=== PATIENT | female | born 1995 | race Caucasian/White ===

== ENCOUNTER 2023-05-07 04:30 | Inpatient (IN) ==
[2023-05-07] MEDS ORDERED: OXYTOCIN 30 UNITS/500 ML BAG IV PRN ×2 (04:41→04:52)
[2023-05-07] MEDS ORDERED: LIDOCAINE 1% LOCAL 20 ML VIAL INFIL PRN (04:41)
[2023-05-07] MEDS ORDERED: LACTATED RINGER'S 1,000 ML IV PRN (04:41)
[2023-05-07] MEDS ORDERED: HYDROCORTISONE ACETATE 25 MG SUPP PR PRN (04:52)
[2023-05-07] MEDS ORDERED: BENZOCAINE 20% SPRY 85 APPLN/85 GM CAN EXT PRN (04:52)
[2023-05-07] MEDS ORDERED: oxyCODONE/ACETAMINOPHEN 5mg/325mg TAB PO PRN (04:52)
[2023-05-07] MEDS ORDERED: DIPHTHERIA/TETANUS/PERTUSSIS Vaccine (Tdap, Age 7+yrs) 0.5mL SYR/VL IM ONE (04:52)
[2023-05-07] MEDS ORDERED: OXYTOCIN 10 UNITS/ML 10ML VIAL IM ONE (04:52)
[2023-05-07] MEDS ORDERED: ACETAMINOPHEN 325 MG TAB PO PRN (04:52)
--- NOTE | 2023-05-07 04:55 | History & Physical Report ---
Date of Service May 07, 2023 Assessment & Plan (1) Post term over 40 weeks: Plan: Precipitous delivery. Please see delivery note for details. Admission completed after delivery. Admission and Anticipated Discharge Date Admission Date: May 07, 2023 History of Present Illness Primary Care Provider: NO PCP 28yo @ 41 09/01, presented with precipitous delivery. She underwent membrane sweep in office yesterday, had declined induction until next week. States rupture of membranes for clear fluid at approx 2:40 this morning. with GDMA1. Allergies Allergy/AdvReac Type Severity Reaction Status Date / Time No Known Drug Allergies Allergy None Verified 05/07/23 04:54 Home Medications Medication Instructions Recorded Confirmed Type prenat.vits,adrian,[id number]-[id number] 1 tab PO DAILY 10/30/22 05/07/23 History acetone (urine) test (Ketone Urine #50 ea 02/26/23 05/06/23 Rx Test strips) blood sugar diagnostic (OneTouch #150 ea 02/26/23 05/06/23 Rx Verio test strips) blood-glucose meter (OneTouch #1 ea 02/26/23 05/06/23 Rx Verio Reflect Meter) lancets 33 gauge #150 ea 02/26/23 05/06/23 Rx Patient History Medical History Varicella vaccine Family History Denies family history of Ovarian cancer Breast cancer Colorectal cancer Social History (Updated 10/30/22 @ 10:06 by Rachel Dorantes RN) Smoking Status: Never smoker Do You Dip or Chew Tobacco: No; marital status: marital status details: Semen Zaina [phone] Current Living Situation: Spouse and Family Current Living Situation Comment: lives with and son current occupational status: unemployed Review of Systems All systems reviewed & are unremarkable except as noted in HPI & below Physical Exam Constitutional: WD/WN, vitals as above Respiratory: normal respiratory effort, lungs clear to auscultation no respiratory distress Cardiovascular: Rate/Rhythm: regular rate and regular rhythm Gastrointestinal (Abdomen): Inspection/Auscultation: abdomen normal to inspection Percussion/Palpation: abdomen soft; abdomen nontender Gravid. No s/s chorio or abruption. Skin: no rashes, warm and dry Psychiatric: A+Ox3, euthymic affect Results & Data Vital Signs (Past 12 Hours) Vital Signs Pulse BP 05/07/23 04:41 81 138/78 Coding Level of Care Code None Diagnoses Post term over 40 weeks O48.0
--- NOTE | 2023-05-07 05:03 | Delivery Summary ---
Vaginal Delivery Summary Date of Service May 07, 2023 Vaginal Delivery Summary [facility] Vaginal Delivery Summary: Pre-delivery diagnoses: 28yo @ 41 3/, spontaneous labor, precipitous delivery, GDMA1 Post-delivery diagnoses: same Procedure: spontaneous vaginal delivery, repair of left labial laceration. Surgeon: Rochelle Jennings DO Complications: none Findings: Viable male . Apgars: 8/9. Weight pending, please see nursery records Estimated blood loss: 300ml Description of delivery: The patient arrived to labor and delivery and the head was on the perineum. She then began to push. She spontaneously vaginally delivered a viable from the cephalic presentation. The head delivered in BROWN position. The anterior shoulder delivered, followed by the posterior shoulder, followed by the body. The baby was placed on mother's abdomen and a spontaneous cry was heard. Delayed cord clamping was employed, and the cord was doubly clamped and cut. A segment was retained for cord gases. Cord blood was obtained. The placenta was delivered spontaneously intact with a 3-vessel cord. The uterus and vagina were swept of clots and debris. IV pitocin was given. The uterus became firm. The cervix, vagina, and perineum were inspected and no lacerations were noted. Excellent hemostasis was observed. The mother and baby are recovering in stable and good condition in the room. Sponge and instrument counts were correct x 2. Rochelle Jennings DO [facility] Vaginal Delivery Charge Delivery Type Details: [facility]
[2023-05-07 05:21] LABS: Hematocrit (blood only) 35.8 % (37.0-47.0); Mean Corpuscular Hemoglobin 31.1 pg (25.0-34.0); Mean Corpuscular Hgb Conc 33.5 g/dL (32.0-36.0); Mean Corpuscular Volume 92.7 fL (80.0-100.0); Mean Platelet Volume 10.5 fL (9.4-12.4); Platelet Count 185 K/uL (130-400); RDW Coefficient of Variation 13.7 % (11.5-14.5); RDW Standard Deviation 46.2 fL (36.4-46.3); Red Blood Count 3.86 M/uL (4.20-5.40); White Blood Count 14.49 K/ul (4.8-10.8)
[2023-05-07] MEDS ORDERED: OXYTOCIN 10 UNITS/ML VIAL ONE (05:50)
[2023-05-07] MEDS: DOCUSATE SODIUM 100 MG CAP PO SCH ×2 (09:22→20:27)
[2023-05-07] MEDS: PRENATAL VITAMIN 1 TAB PO SCH (09:22)
[2023-05-07] MEDS: IBUPROFEN 600 MG TAB PO PRN ×2 (09:23→13:16)
[2023-05-08 06:40] LABS: Hematocrit (blood only) 32.4 % (37.0-47.0); Hemoglobin 10.9 g/dl (12.0-16.0)
--- NOTE | 2023-05-08 07:12 | Obstetrical Progress Note ---
Date of Service <Jennifer Hussein MD - Last Filed: 05/08/23 08:04> May 08, 2023 Assessment & Plan <Jennifer Hussein MD - Last Filed: 05/08/23 08:04> (1) Encounter for assessment: Plan Patient with the above mentioned history and findings was evaluated at bedside and found awake, alert, oriented in all spheres, afebrile, and in no acute distress. Vital signs showed no fever and blood pressures remained stable Her blood type is O pos and today's hemoglobin is adequate at 10.9 g/dL. GBS negative and rubella immune. Overall, patient is doing well clinically and meeting the desired milestones. Since she is clinically and hemodynamically stable, will discharge today. She was advised to make an appointment with her OB in 6 weeks for her routine pp evaluation. Discharge instructions discussed. All questions were answered. <Katerine Ramirez MD, FACOG - Last Filed: 05/08/23 08:47> (1) Encounter for assessment: Subjective <Jennifer Hussein MD - Last Filed: 05/08/23 08:04> Meena is a 28 y/o female who is now PPD # 1 following at 41 3/7 weeks. Reports feeling well overall this morning. Refers mils abdominal cramping & 2/10 pain well managed on analgesics. Voiding spontaneously. Passing gas but no bowel movements yet. Tolerating meals overnight and able to ambulate some. Some persistent lochia with some improvement this morning. . Constitutional: no fever, no chills or no sweats Denies shortness of breath or difficulty breathing Cardiovascular: no chest pain or no palpitations Breast: no breast pain Genitourinary (female): no dysuria Neurologic: no headache(s) Denies changes in vision Physical Exam <Jennifer Hussein MD - Last Filed: 05/08/23 08:04> General: Alert. Oriented to person, time, and place. Afebrile. No acute distress. Eyes: pupils equal and reactive to light bilaterally, extraocular movements intact. Cardiac: Regular rate and rhythm, no murmurs/rubs/gallops. Respiratory: No increased work of breathing. Symmetrical chest rise. No respiratory distress. Abdomen: Soft, nontender, nondistended. Bowel sounds present. Uterus: Uterine fundus firm, mildly tender, palpable below umbilicus. Lower Extremities: No lower extremity edema or swelling. No deep calf pain. Jaquelin's negative bilaterally. Psych: Euthymic affect. Mood and affect congruence. Regular speech rate and content. Results & Data <Jennifer Hussein MD - Last Filed: 05/08/23 08:04> Vital Signs (Past 12 Hours) Vital Signs Temp Pulse Resp BP Pulse Ox O2 Del Method 05/08/23 04:35 36.6 C 83 18 115/70 Room Air 05/08/23 00:15 36.6 C 75 16 138/75 94 Room Air 05/07/23 19:37 36.6 C 87 18 132/73 98 Room Air Supervising Physician <Katerine Ramirez MD, FACOG - Last Filed: 05/08/23 08:47> Co-Signing Physician Notes Resident Physician Supervision Note: I was present with Dr. Hussein during the history and exam. I discussed the case with the resident and agree with the findings and plan as documented in the note. Any exceptions or clarifications are listed here: stable doing well, desires dc home. abd soft ff 2 down nt. nt calves. asks about her lacerations and discussed. needs 6wk pp check. breast, rhpos, ri. instructions reviewed. Documented By: Katerine Ramirez MD, FACOG Resident Activity Tracking <Jennifer Hussein MD - Last Filed: 05/08/23 08:04> Resident Involvement: Resident Care Provided Care Provided: OB Delivery
[2023-05-08] MEDS: PRENATAL VITAMIN 1 TAB PO SCH (08:43)
[2023-05-08] MEDS: DOCUSATE SODIUM 100 MG CAP PO SCH (08:43)
[2023-05-08] MEDS: IBUPROFEN 600 MG TAB PO PRN (08:43)
[2023-05-08] MEDS ORDERED: bisacodyL 5 MG TABEC PO SCH (20:00)
[2023-05-09] MEDS ORDERED: bisacodyL 10 MG SUPP PR PRN (04:52)
== END 2023-05-08 13:39 | disposition home or self-care (01) | DRG 807 ==
LOC: 4S1 04:30 → 4E1 07:45
DX: O24.420 Gestational diabetes mellitus in childbirth, diet controlled; O70.0 First degree perineal laceration during delivery; Z3A.41 41 weeks gestation of pregnancy; O48.0 Post-term pregnancy; O62.3 Precipitate labor; Z37.0 Single live birth